=== PATIENT | female | born 1990 | race Caucasian/White ===

== ENCOUNTER 2020-04-08 12:35 | Inpatient (IN) | payer OTHER ==
[~2020-04-08] VITALS: Ht 160 cm; Wt 81.6 kg
--- NOTE | 2020-04-08 12:47 | NUR ---
PTE REFIERE DOLOR ABDOMINAL Y DIARREAS SE TOMER S/V YSE UBIAC EN AREA DE OBSERVACION
--- NOTE | 2020-04-08 14:55 | NUR ---
PTE ALERTA Y ORIENTADO POR MARRY DIMENSIONES OCN BUEN PATRON RESPIARTORIO. SE ORIENTA SOBRE TRATAMIENTO A SEGUIR, MEDICAMENTOS E INSTRUCCIONES, PTE REFIERE ENTENDER. SE ADMINISTRA MEDICAMENTOS, SE EXTRAE MUESTRAS Y SE CANALIZA JOHN ORDEN MEDICA, UTILIZANDO MEDIDAS ASEPTICAS. AREA DE CANALZIACION PERMANECE PATENTE, TYLOR DE EDMA Y ERITEMA. SE MANTIENE BAJO OBSERVACION POR CAMBIOS.
--- NOTE | 2020-04-08 15:00 | NUR ---
PACIENTE FEMINA ALERTA ORIENTADA DEVIDAMENTE IDENTIFICADA. SE RE ORIENTA SOBRE EL TRATAMIENTO ORDENADO POR EL MEDICO DE TURNO LA MISMA REFIERE ENTENDER. AREA DE VENOPUNCION PATENTE TYLOR DE EDEMA Y ERITEMA AL MOMENTO. PENDIENTE RESULTADOS DE LABORATORIO Y SONOGRAMA ABDOMINAL. PACIENTE ESTABLE DENTRO DE MARQUEZ CONDICION DE [place]. SE BIRNDA PRIVACIDAD SEGURIDAD EN TODO MOMENTO.
== END 2020-04-09 14:50 | disposition home or self-care (01) | DRG 392 ==
LOC: ER 12:35 → SURH 19:55
PROVIDERS: ADMIT Internal Medicine; ATTEND Internal Medicine
PROC: BW40ZZZ Ultrasonography of Abdomen (ICD-10-PCS; principal; 2020-04-08)
PROC: 8E0ZXY6 Isolation (ICD-10-PCS; 2020-04-08)
DX: A08.8 Other specified intestinal infections (principal); Z20.828 Contact with and (suspected) exposure to other viral communicable diseases